=== PATIENT | female | born 1970 | race Caucasian/White ===

== ENCOUNTER → 2017-11-16 | Outpatient (CLI) | payer BC ==
[~2017-11-16] MED LIST: ADDE30TA PO; ADDE5TAB PO; CLON.5 PO; EZET10 PO; PRED20 PO; ROSU10 PO; ZITH250T PO; ZOLO50TA PO
--- NOTE | 2017-11-16 17:14 | EKG ---
Date Performed: 11/16/2017 Time Performed: 13:10:08 PTAGE: 47 years EKG: Sinus rhythm NORMAL ECG Since the PREVIOUS TRACING , no significant change noted DOCTOR: Kesha James Interpretating Date/Time 11/16/2017 17:13:25
== END ==
LOC: CPRE 12:48
PROVIDERS: ATTEND Obstetrics & Gynecology
DX: Z01.810 Encounter for preprocedural cardiovascular examination (principal); N83.202 Unspecified ovarian cyst, left side; R10.2 Pelvic and perineal pain
CPT/HCPCS: 93005

== ENCOUNTER → 2017-11-18 | Day surgery (SDC) | payer BC ==
--- NOTE | 2017-11-17 21:41 | MH ---
cc: Kalia Tristan MD, John A MD DATE OF ADMISSION: 11/18/2017 ADMISSION DIAGNOSIS: Pelvic pain with ovarian cyst. HISTORY OF PRESENT ILLNESS: The patient is a 47-year-old white female, para 2-0-0-2, who presented for evaluation of pelvic pain of about 6 months with pressure and discomfort. X-rays were normal. Colonoscopy was normal. She had menopausal symptoms. A pelvic ultrasound showed cystic changes on the left. She is now admitted for surgical evaluation. PAST MEDICAL HISTORY/PAST SURGICAL HISTORY: Sinus surgery 2003. LASH procedure 2000. MEDICATIONS: 1. Adderall. 2. Zoloft. 3. Xanax. 4. Crestor. ALLERGIES: SULFA. MEDICAL ILLNESS: Treated by Dr. Lopez for ADHD and anxiety. TRANSFUSIONS: None. OBSTETRIC HISTORY: Two vaginal deliveries. SOCIAL HISTORY: She is an information security officer, . Alcohol none. Tobacco half pack a day for 25 years. Drugs none. FAMILY HISTORY: Noncontributory. PHYSICAL EXAMINATION: GENERAL: She is a well-nourished, well-developed white female. VITAL SIGNS: Stable. HEENT: Normal. CHEST: Clear. HEART: Regular rate. BREASTS: Symmetrical. ABDOMEN: Benign. PELVIC: Vagina is normal, atrophic. Cervix normal. Adnexa nonpalpable. ASSESSMENT: As above. PLAN: She is now admitted for a laparoscopy with planned BSO, possible laparotomy. While in the office the procedures, risks, benefits and complications were explained and accepted. MD DAMARI Steven/ , 09:27 PM , 09:40 PM
[~2017-11-18] VITALS: Ht 170.2 cm; Wt 71.1 kg
[~2017-11-18] MED LIST changes: +*morphine SULFATE 4 MG/ML PERIprocedure ONLY ONE; +ACETAMINOPHEN 1000 MG/100 ML 0 ML IV ONE; +ACETAMINOPHEN 1000 MG/100 ML 100 ML IV PRN; +ACETAMINOPHEN/CODEINE 300 MG/30 MG TAB ONE; +ACETAMINOPHEN/CODEINE 300 MG/30 MG TAB PO PRN; -ADDE5TAB PO; +APREPITANT 40 MG CAP ONE; +BUPIVACAINE/EPINEPHRINE 0.5% PF 10 ML VIAL ONE; +CHLORHEXIDINE GLUCONATE 2 % 1 PACK (2 CLOTHS) TOPICAL PRN; +DEXAMETHASONE SOD PHOS 4 MG/ML VIAL IV ONE; +DO NOT ADM ANY ANTICOAGULANT DRUGS PRN; +FAMOTIDINE 20 MG/2 ML VIAL ONE; +GLYCOPYRROLATE 1 MG/5 ML SYRINGE IV PUSH ONE; +KETOROLAC TROMETHAMINE 30 MG/ML (IVP) VIAL IV PUSH ONE; +LACTATED RINGER'S 1000 ML INJ 1,000 ML IV ONE; +LACTATED RINGER'S 1000 ML IV PRN; +LIDOCAINE HCL 1% PF 5 ML SYRINGE OTHER ONE; +METOCLOPRAMIDE HCL 10 MG/2 ML VIAL IV PRN; +METOPROLOL TARTRATE 25 MG TAB PO PRN; +MIDAZOLAM HCL 2 MG/2 ML VIAL ONE; +MORPHINE SULFATE 2 MG/ML SYRINGE ONE; +NEOSTIGMINE 5 MG/5 ML SYRINGE IV PUSH ONE; +ONDANSETRON ODT 4 MG TAB ONE; +OXYTOCIN 10 UNIT/ML AMP ONE; +POVIDONE IODINE 5% (ANTISEPSIS KIT) 4 APPLICATIONS EACH NARE PRN; -PRED20 PO; +PROPOFOL 200 MG/20 ML AMP IV ONE; +ROCURONIUM INJ 100 MG/10 ML VIAL IV ONE; +SODIUM CHLORID 0.9% 500 ML IV PRN; -ZITH250T PO; +ceFAZolin 1,000 MG/NS 100 ML IV SCH; +ceFAZolin INJ 1,000 MG VIAL IV ONE; +ePHEDrine/NS 25 MG/5 ML SYRINGE IV ONE
--- NOTE | 2017-11-18 08:53 | MP ---
cc: Kalia Tristan MD DATE OF OPERATION: 11/18/2017 DATE OF PROCEDURE: 11/18/2017. PREOPERATIVE DIAGNOSES: 1. Pelvic pain. 2. Ovarian cyst. POSTOPERATIVE DIAGNOSES: 1. Pelvic pain. 2. Ovarian cyst. PROCEDURE PERFORMED: Laparoscopic bilateral salpingo-oophorectomy. ANESTHESIA: General, ET. SURGEON: Kalia Tristan MD PARAPROFESSIONAL AIDE: Ewa Rockwell. ESTIMATED BLOOD LOSS: EBL for the procedure was about 25 mL FLUIDS: 1 liter crystalloid. OBJECTIVE FINDINGS: Following induction of adequate general endotracheal anesthesia, the patient was prepped and draped supine on the operating table in dorsal lithotomy position, in the usual sterile fashion, with the bladder being drained by Andre catheterization. The abdomen was opened through a 1.5 cm infraumbilical incision. A 5 port was placed followed by laparoscope attached to video-cam. A 12 port was placed in left lower quadrant and a 5 in the right. Pelvic contents revealed bilateral small multicystic ovaries. Working first on the right, Harmonic scalpel was used to take the right ovarian pedicle, right mesosalpinx. Pouch inserted and the right tube and ovary extracted from the larger port site and the same on the left. Ureters were inspected for good peristalsis. The wounds were dusted with Surgicel powder. The bladder inflation was checked to ensure no leakage of saline. There was no bleeding with low pressure test. Inspection of the bowel revealed no other abnormalities or injuries. The large port was now removed and sutured with 2-0 Vicryl for the fascia x2. The skin injected with 10 mL of Marcaine 0.5% with epinephrine and closed with a running 3-0 Vicryl subcuticular. A final inspection revealed no bleeding or entrapment of tissue, so the scope was removed, gas was allowed to escape. Ports removed and each 5 port injected with 5 mL of 0.5% Marcaine with epinephrine and closed with 3-0 Monocryl subcuticular. Sterile bandage applied. All counts were correct and the patient was awakened and taken to recovery in good condition and Andre catheter discontinued. Kalia Tristan MD JAW/TL , 07:53 AM , 08:52 AM
[2017-11-18 09:54] VITALS: BP 116/72; PULSE 82; RESP 18; TEMP 97.6; O2SAT 100
== END | disposition home or self-care (01) ==
LOC: HSDC 05:19
PROVIDERS: ATTEND Obstetrics & Gynecology
DX: N83.202 Unspecified ovarian cyst, left side (principal); N83.8 Other noninflammatory disorders of ovary, fallopian tube and broad ligament
CPT/HCPCS: 00840; 58661; 88305; J0131; J0690; J1100; J1885; J2250; J2270; J2710; J3010; J7120; J8501; J2590